=== PATIENT | female | born 2005 | race Caucasian/White ===

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

== ENCOUNTER → 2024-03-07 09:29 | Outpatient (BNVA) | payer OTHER, SELFPAY | PROVIDERS: PCP Family Medicine; Visit Provider Nurse Practitioner Women's Health | DX: Z13.1 Encounter for screening for diabetes mellitus (principal); D64.9 Anemia, unspecified | CPT/HCPCS: 80053; 82607; 82728; 82746; 83036; 83540; 84439; 84443 ==

== ENCOUNTER → 2024-03-09 09:12 | Outpatient (BNVA) | payer OTHER, SELFPAY | PROVIDERS: PCP Family Medicine; Visit Provider Nurse Practitioner Women's Health | DX: D64.9 Anemia, unspecified (principal) | CPT/HCPCS: 85025 ==